=== PATIENT | female | born 1950 | race Two or more races ===

== ENCOUNTER 2017-12-30 14:36 | Inpatient (IN) | payer OTHER ==
[~2017-12-30] VITALS: Ht 162.6 cm; Wt 86.2 kg
[~2017-12-30 14:36] MED LIST: CLONAZEPAM0.125 MG/T; COREG CR10 MG; CYMBALTA20 MG; DILTIAZEM 24HR120 MG; DIOVAN320 MG; PRADAXA75 MG; [UNRECOGNIZED DRUG - OTHER]
[2017-12-31] MEDS ORDERED: CARDIZEM30 MG PO (07:20)
== END 2018-01-02 14:27 | disposition home or self-care (01) | DRG 311 ==
LOC: ER 14:36 → MEDI 12-31 08:39
PROC: B246ZZZ Ultrasonography of Right and Left Heart (ICD-10-PCS; principal; 2017-12-31)
PROC: BW40ZZZ Ultrasonography of Abdomen (ICD-10-PCS; 2017-12-31)
PROC: 4A12X4Z Monitoring of Cardiac Electrical Activity, External Approach (ICD-10-PCS; 2017-12-31)
DX: I24.9 Acute ischemic heart disease, unspecified (principal); K29.00 Acute gastritis without bleeding; I10 Essential (primary) hypertension; I48.2 Chronic atrial fibrillation; I34.0 Nonrheumatic mitral (valve) insufficiency